=== PATIENT | female | born 1955 | race Hispanic/Latino ===

== ENCOUNTER 2023-08-30 15:31 | Emergency (ER) | payer OTHER ==
[2023-08-30] MEDS ORDERED: Ibuprofen 200 MG TAB ONE (18:51)
== END 2023-08-30 18:58 | disposition home or self-care (01) ==
LOC: CSHERS 15:31
DX: S00.93XA Contusion of unspecified part of head, initial encounter (principal); I10 Essential (primary) hypertension; W22.8XXA Striking against or struck by other objects, initial encounter
CPT/HCPCS: 70450